=== PATIENT | female | born 1950 | race Caucasian/White ===

== ENCOUNTER 2018-08-01 16:26 | Observation (INO) ==
[2018-08-01 17:28] LABS: Basophils % 0.4 %; Eosinophils # 0.1 K/mcL (0.0-0.6); Eosinophils % 1.3 %; Hematocrit 42.3 % (35.3-44.9); Hemoglobin 13.5 g/dL (11.5-15.4); Immature Granulocytes % 0.2 % (0-4); Lymphocytes % 22.5 %; Mean Corpuscular HGB Conc 31.9 g/dL (31.6-35.5); Mean Corpuscular Volume 87.8 fL (83.0-100.0); Mean Platelet Volume 10.6 fL (9.4-12.4); Monocytes # 0.6 K/mcL (0.0-1.3); Monocytes % 6.8 %; Neutrophils # 6.2 K/mcL (1.6-8.9); Platelet Count 238 K/mcL (140-400); Red Blood Count 4.82 M/mcL (3.82-4.97); Red Cell Distribution Width 12.8 % (11.5-14.5); Segmented Neutrophils % 68.8 %
[2018-08-01] MEDS ORDERED: Isovue-370 500 ML BOTTLE IVP ONE (17:40)
[2018-08-01 17:45] LABS: Bilirubin,Urine Negative (Negative); Blood,Urine Negative (Negative); Clarity,Urine Clear (Clear); Color,Urine Yellow (Yellow); Glucose,Urine (UA) Normal (Normal); Ketones,Urine Negative (Negative); Leukocyte Esterase,Urine Small (Negative); Nitrite,Urine Negative (Negative); PH,Urine 5.5 pH Units (5.0-8.0); Protein,Urine Negative (Neg-Trace); Specific Gravity,Urine 1.015 (1.010-1.025); Urobilinogen,Urine Normal (Normal)
[2018-08-01 17:48] LABS: Bacteria,Urine Few per hpf (None-Few); Hyaline Casts,Urine None Seen per lpf (None-Few); RBC,Urine 0-3 per hpf (0-3); Squamous Epithelial Cell,Urine Many per lpf (None-Few)
[2018-08-01 17:50] LABS: Alanine Aminotransferase 18 Units/L (7-52); Albumin 4.3 g/dL (3.5-5.7); Albumin/Globulin Ratio 1.7 (1.1-2.2); Alkaline Phosphatase 81 Units/L (34-104); Amylase 34 Units/L (29-103); Aspartate Amino Transferase 17 Units/L (13-39); BUN/Creatinine Ratio 26 (6-26); Bilirubin,Direct 0.2 mg/dL (0.0-0.2); Bilirubin,Indirect 0.6 mg/dL (0.0-1.2); Bilirubin,Total 0.8 mg/dL (0.3-1.0); Blood Urea Nitrogen 18 mg/dL (8-23); Calcium 9.7 mg/dL (8.6-10.3); Carbon Dioxide 27 mEq/L (23-29); Chloride 104 mEq/L (98-107); Globulin 2.6 g/dL (2.4-3.5); Glucose 145 mg/dL (70-105); Lipase 10 Units/L (11-82); Osmolality,Calculated 294 (280-300); Potassium 3.9 mEq/L (3.5-5.1); Sodium 140 mEq/L (136-145); Total Protein 6.9 g/dL (6.4-8.9); eGFR For African Americans > 60 (> 60); eGFR For Non-African Americans > 60 (> 60)
--- NOTE | 2018-08-01 17:56 | Emergency Department Note ---
Disposition Clinical Impression: Diverticulitis, Colonic mass Disposition: Admitted As Inpatient Condition: Fair Time of Disposition: 19:54 General Adult HPI - General Chief complaint: ED Abdominal Pain Stated complaint: ABD Pain Time Seen by Provider: 08/01/18 17:05 Source: patient Limitations: no limitations - History of Present Illness HPI Narrative: Ms. Villanueva is a 68-year-old female presented to the ED complaining of right lower quadrant abdominal pain. She reports abdominal pain started 1 week ago. Pain is described as constant and achy. She reports radiation of burning sensation into her groin area. Denies any burning with urination or hematuria. She also denies any changes in her bowel movements. Denies any vaginal discharge or bleeding from her vagina. She denies any recent injuries to the right lower quadrant or recent heavy lifting. She reports concern for the pain due to previous history of cervical cancer with previous hysterectomy 5 years ago and wanted to make sure this pain was not related to malignancy. Denies any recent weight loss but reports weight gain. She denies any nausea, emesis, chest pain, shortness of breath or pain. Pain Scale: 5 - Related Data Home Medications Medication Instructions Recorded Confirmed Aspirin [Lo-Dose Aspirin EC] 81 mg PO DAILY 10/05/17 08/01/18 Cetirizine HCl [Zyrtec] 10 mg PO DAILY PRN 08/01/18 08/01/18 Citalopram Hydrobromide [Celexa] 40 mg PO DAILY 08/01/18 08/01/18 Allergies Allergy/AdvReac Type Severity Reaction Status Date / Time No Known Allergies Allergy Verified 08/01/18 16:28 Constitutional: Denies: fever, chills Eyes: Denies: eye pain, eye discharge ENT ED: Denies: ear pain, congestion, dysphagia Cardiovascular: Denies: chest pain, palpitations, dyspnea on exertion, syncope Respiratory: Denies: cough, dyspnea, wheezes Gastrointestinal: Reports: abdominal pain (Right lower quadrant). Denies: nausea, vomiting Genitourinary: Denies: urgency, dysuria, frequency Musculoskeletal: Denies: back pain Integumentary: Denies: rash, abrasion Neurological: Denies: headache, weakness Psychiatric: Denies: anxiety, depression Endocrine: Denies: fatigue Past Medical History - Past Medical History Medical history: Reports: arthritis, cancer Surgical history: Reports: hysterectomy, orthopedic, other Psychiatric history: Reports: depression SPRING LAYER history: Reports: no SPRING LAYER history - Social History Smoking Status: Never smoker Smokeless Tobacco Status: No Alcohol use: Reports: none Drug use: Reports: none Physical Exam - General Limitations: no limitations General appearance: alert, in no apparent distress - Head Head exam: atraumatic, normocephalic - Eye Eye exam: Present: normal appearance, EOMI. Absent: scleral icterus, conjunctival injection - ENT ENT exam: normal exam, normal oropharynx, mucous membranes moist - Neck Neck exam: Present: normal inspection, full ROM, trachea midline - Chest Chest inspection: Present: normal inspection, symmetric chest wall rise - Respiratory Respiratory exam: Present: normal lung sounds bilaterally. Absent: respiratory distress, wheezes - Cardiovascular Cardiovascular exam: Present: regular rate, normal rhythm, +S1, +S2 - Abdominal Exam Abdominal exam: Present: soft, tenderness (mild tenderness in right lower quadrant). Absent: distention, guarding, rigidity - Extremities Exam Extremities exam: Present: normal inspection, full ROM. Absent: tenderness, pedal edema - Neurological Exam Neurological exam: Present: alert, oriented X3 (Oriented to person place and time) - Psychiatric Psychiatric exam: Present: normal affect, normal mood - Skin Skin exam: Present: warm, dry, intact Course Vital Signs Temperature 98 F 08/01/18 16:29 Pulse Rate 88 08/01/18 16:29 Respiratory Rate 16 08/01/18 16:29 Blood Pressure 141/73 08/01/18 16:29 O2 Sat by Pulse Oximetry 93 08/01/18 16:29 Temperature 98 F 08/01/18 17:33 Pulse Rate 88 08/01/18 17:33 Respiratory Rate 16 08/01/18 17:33 Blood Pressure 141/73 08/01/18 17:33 O2 Sat by Pulse Oximetry 93 08/01/18 17:33 Oxygen Delivery Oxygen Delivery Room Air Medical Decision Making - [facility] Narrative Medical decision making narrative: Ms. Villanueva is a 68-year-old female presenting to the ED complaining of right lower quadrant pain onset 1 week ago. Reports the pain is achy in sensation radiates into her groin with a burning sensation in her groin. Denies any pain like this before. Denies any dysuria or sooner bowel habits. She does report. History of cervical cancer 5 years ago and had hysterectomy. CT of the abdomen and pelvis was conducted which shows suspicion for locally advanced colonic malignancy and diverticulitis. 1 dose of Zosyn given. Updated Ms. Villanueva findings. She is understanding and agreeable to admission. 1929 Updated the admitting hospitalist of the CT finding. 1949 - Lab Data Lab results reviewed: Yes I reviewed the patient's lab results. Result diagrams: 08/01/18 17:15 08/01/18 17:15 Lab Results 08/01/18 08/01/18 08/01/18 Range/Units 17:15 17:15 17:33 WBC 9.0 (4.3-11.1) K/mcL RBC 4.82 (3.82-4.97) M/mcL Hgb 13.5 (11.5-15.4) g/dL Hct 42.3 (35.3-44.9) % MCV 87.8 (83.0-100.0) fL MCH 28.0 (28.0-33.3) pg MCHC 31.9 (31.6-35.5) g/dL RDW 12.8 (11.5-14.5) % Plt Count 238 (140-400) K/mcL MPV 10.6 (9.4-12.4) fL Immature Gran % 0.2 (0-4) % Seg Neutrophils % 68.8 % Lymphocytes % 22.5 % Monocytes % 6.8 % Eosinophils % 1.3 % Basophils % 0.4 % Neutrophils # 6.2 (1.6-8.9) K/mcL Lymphocytes # 2.0 (0.6-4.6) K/mcL Monocytes # 0.6 (0.0-1.3) K/mcL Eosinophils # 0.1 (0.0-0.6) K/mcL Basophils # 0.0 (0.0-0.2) K/mcL Sodium 140 (136-145) mEq/L Potassium 3.9 (3.5-5.1) mEq/L Chloride 104 (98-107) mEq/L Carbon Dioxide 27 (23-29) mEq/L BUN 18 (8-23) mg/dL Creatinine 0.70 (0.60-1.20) mg/dL Est GFR ( Amer) > 60 (> 60) Est GFR (Non-Af Amer) > 60 (> 60) BUN/Creatinine Ratio 26 (6-26) Glucose 145 H (70-105) mg/dL Calculated Osmolality 294 (280-300) Calcium 9.7 (8.6-10.3) mg/dL Total Bilirubin 0.8 (0.3-1.0) mg/dL Direct Bilirubin 0.2 (0.0-0.2) mg/dL Indirect Bilirubin 0.6 (0.0-1.2) mg/dL AST 17 (13-39) Units/L ALT 18 (7-52) Units/L Alkaline Phosphatase 81 (34-104) Units/L Serum Total Protein 6.9 (6.4-8.9) g/dL Albumin 4.3 (3.5-5.7) g/dL Globulin 2.6 (2.4-3.5) g/dL Albumin/Globulin Ratio 1.7 (1.1-2.2) Amylase 34 (29-103) Units/L Lipase 10 L (11-82) Units/L Urine Color Yellow (Yellow) Urine Clarity Clear (Clear) Urine pH 5.5 (5.0-8.0) pH Units Ur Specific [place] 1.015 (1.010-1.025) Urine Protein Negative (Neg-Trace) mg/dL Urine Glucose (UA) Normal (Normal) mg/dL Urine Ketones Negative (Negative) mg/dL Urine Blood Negative (Negative) Urine Nitrite Negative (Negative) Urine Bilirubin Negative (Negative) Urine Urobilinogen Normal (Normal) mg/dL Ur Leukocyte Esterase Small H (Negative) Urine Microscopic RBC 0-3 (0-3) per hpf Urine Microscopic WBC 5-15 H (0-3) per hpf Ur Squamous Epith Cells Many H (None-Few) per lpf Urine Bacteria Few (None-Few) per hpf Hyaline Casts None Seen (None-Few) per lpf Ur Culture Indicated? YES A (NO) - Radiology Data Radiology results reviewed: Yes I reviewed the patient's radiology results. Attestation Statement - Attestation Attestation: I, Simon Barkley, examined this patient and my medical decision-making was reviewed with the [employer]/PA/Advanced Practice Nurse/Resident Physician. I agree with the documented findings, disposition and treatment plan as described except to the extent set forth below. 68-year-old female presents emergency Department with concerns of abdominal pain. Patient pain is in the right lower quadrant and has been progressively worsening. Patient has a history of previous cancer for which she had a hysterectomy. Patient denies vomiting, diarrhea, chest pain, palpitations, shortness of breath. Patient was anxious during the initial exam. Abdomen was tender to palpation of the right lower quadrant. CT shows multiple areas of possible malignancy as well as diverticulitis. Patient was started on antibiotics emergency department was admitted to the hospitalist for further care and evaluation.
[2018-08-01] MEDS ORDERED: Piperacillin/Tazobactam 3.375 GM in Water for inj. (sterile) 20 ML IVP ONE (19:31)
[2018-08-01] MEDS ORDERED: Ondansetron 4 MG/2 ML VIAL IVP PRN (21:05)
[2018-08-01] MEDS ORDERED: Naloxone 0.4 MG/ML INJ IVP PRN (21:05)
[2018-08-01] MEDS ORDERED: Loratadine 10 MG TABLET PO PRN (21:08)
--- NOTE | 2018-08-01 21:12 | Internal Med History&Physical ---
Date of Encounter: 08/01/18 Time of Encounter: 21:10 Internal Medicine - H&P: HPI Chief complaint: Abdominal pain History of present illness: Ms. 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 Pain is described as intermittent, achy, involving the right side of her abdomen extending from the right upper quadrant to the right lower quadrant. Pain seems to be aggravated with deep inspiration. No association with food or bowel movements. She reports radiation of burning sensation into her groin area as well as occasional dysuria. Denies any nausea vomiting or diarrhea. No reports of melena or hematochezia. She also denies any changes in her bowel movements. No reports of weight loss. Denies any vaginal discharge or bleeding from her vagina. She denies any recent injuries to the right lower quadrant or recent heavy lifting. She reports concern for the pain due to previous history of ovarian cancer with previous hysterectomy 5 years ago and wanted to make sure this pain was not related to malignancy. She denies any nausea, emesis, chest pain, shortness of breath or pain. Patient currently follows with Dr. Plummer with oncology. No reports of prior colonoscopy. On arrival patient was afebrile, hemodynamically stable. Laboratory workup was within normal limits. UA showed trace leukocyte esterase. CT scan of the abdomen concerning for metastatic colon cancer as well as diverticulitis. Patient was started on Zosyn and admitted for further evaluation. Patient wishes to be full code at this time. Past Med Surg Social Fam HX - Past Medical History Medical history: arthritis, cancer Additional medical history: tubaligation Psychiatric history: depression - Past Surgical History Surgical History: hysterectomy, orthopedic, other Additional surgical history: rt leg. cancer surgery - Social History Smoking Status: Never smoker Smokeless Tobacco Status: No Alcohol use: none Drug use: none - Family History Father Living Status: Cause of : cancer Hx Family Cardiac Disorders: Yes (stroke) Hx Family Cancer: Yes (colon and prostate) Hx Family Endocrine Disorder: Yes Mother Living Status: Age at : 81 Cause of : old age Hx Family Respiratory Disorders: Yes (asthma) Internal Medicine - H&P: Meds Aspirin [Lo-Dose Aspirin EC] 81 mg PO DAILY 10/05/17 [History] Cetirizine HCl [Zyrtec] 10 mg PO DAILY PRN 08/01/18 [History] Citalopram Hydrobromide [Celexa] 40 mg PO DAILY 08/01/18 [History] Allergy/AdvReac Type Severity Reaction Status Date / Time No Known Allergies Allergy Verified 08/01/18 16:28 All Systems PM: A 10-system review of systems was performed and is negative for pertinent findings except as documented above in the HPI. - Constitutional Constitutional: no chills, no fever(s), no night sweats - EENT Eyes: no change in vision, no discharge, no pain, no photophobia Ears: no ear discharge, no ear pain, no tinnitus Nose, mouth and throat: no dysphagia, no nasal discharge, no neck pain, no sore throat - Cardiovascular Cardiovascular ROS IM: no chest pain, no diaphoresis, no dyspnea, no lightheadedness, no palpitations, no syncope - Respiratory Respiratory: no cough, no dyspnea, no wheezing, no excessive phlegm production - Gastrointestinal Gastrointestinal: no abdominal pain, no diarrhea, no hematemesis, no hematochezia, no melena, no nausea, no vomiting - Genitourinary Genitourinary: no change in urinary stream, no dysuria, no flank pain, no hematuria - Musculoskeletal Musculoskeletal ROS IM: no numbness, no tingling - Integumentary Integumentary IM: no rash, no unusual bruising - Neurological Neurological ROS: no confusion, no convulsions, no focal weakness, no numbness, no tingling, no tremor(s) - Hematologic/Lymphatic Hematologic/Lymphatic: no easy bruising - Constitutional Vitals: Temp Pulse Resp BP Pulse Ox 98.5 F 73 15 132/72 93 08/01/18 20:37 08/01/18 20:37 08/01/18 20:37 08/01/18 20:37 08/01/18 20:37 Exam: General: Alert and oriented 3 Skin:Normal color, no rash, no lesions. HEENT:EOM, pupils equal, round and reactive. Cardiovascular:Normal S1 & S2, no rubs, murmurs or gallops. No JVD. Pulse regular. Lungs:Normal breath sounds, no wheezes or crackles. Abdomen:Soft, non-tender, no rigidity. Extremities:No deformity, no edema or tenderness, no joint swelling or clubbing. Neurological:Normal cognition and motor skills. Pulses:Carotid and radial pulses normal +2. Rest of the physical exam is non contributory Internal Med - H&P Results - Labs CBC & Chem 7: 08/01/18 17:15 08/01/18 17:15 Labs: Short CBC 08/01/18 Range/Units 17:15 WBC 9.0 (4.3-11.1) K/mcL Hgb 13.5 (11.5-15.4) g/dL Hct 42.3 (35.3-44.9) % Plt Count 238 (140-400) K/mcL Neutrophils # 6.2 (1.6-8.9) K/mcL BMP 08/01/18 17:15 Sodium 140 Potassium 3.9 Chloride 104 Carbon Dioxide 27 BUN 18 Creatinine 0.70 Glucose 145 H Calcium 9.7 Liver Function 08/01/18 Range/Units 17:15 Total Bilirubin 0.8 (0.3-1.0) mg/dL Direct Bilirubin 0.2 (0.0-0.2) mg/dL AST 17 (13-39) Units/L ALT 18 (7-52) Units/L Alkaline Phosphatase 81 (34-104) Units/L Albumin 4.3 (3.5-5.7) g/dL Urine 08/01/18 Range/Units 17:33 Urine Color Yellow (Yellow) Urine Clarity Clear (Clear) Urine pH 5.5 (5.0-8.0) pH Units Ur Specific [place] 1.015 (1.010-1.025) Urine Protein Negative (Neg-Trace) mg/dL Urine Glucose (UA) Normal (Normal) mg/dL - Impressions ITS Impressions Abdomen/Pelvis CT 08/01/18 17:40 IMPRESSION: 1. Findings suspicious for locally advanced colon malignancy at the level of the splenic flexure with 4.2 cm exophytic component of this mass. No evidence for bowel obstruction however there appears to be a circumferential colonic component to this mass. 2. Separate from this process, involving the sigmoid colon in the pelvis, findings compatible with acute/subacute diverticulitis are noted. No evidence for gross perforation or abscess formation. Abnormal peritoneal nodularity is also present in this location, suspicious for neoplastic process which may be due to an occult secondary neoplastic process in the sigmoid colon versus peritoneal carcinomatosis from the above described splenic flexure mass. 3. Abnormal nodularity in the tail the pancreas, adjacent to the colonic abnormality. Neoplastic involvement is a consideration. This could be confirmed and further evaluated with contrast-enhanced MRI. 4. Indeterminate small bilateral adrenal nodules. This may be due to metastatic disease until proven otherwise. This could also be further evaluated with MRI. 5. Subcentimeter hypoattenuating liver lesions, too small to characterize. Metastatic disease from colon primary can have this appearance. These could also be further evaluated with contrast-enhanced MRI. 6. Additional chronic findings, as above. D/ / Armen Barbosa / Armen Barbosa Interpreting Provider: Armen Barbosa - Assessment and Plan (1) Colonic mass Current Visit: Yes Status: Acute Assessment and plan: Patient with a past medical history significant for ovarian cancer status post chemotherapy presenting with abdominal pain of one days duration. CT scan of the abdomen showing findings suspicious for locally advanced colon malignancy at the level of the splenic flexure with 4.2 cm exophytic component. No evidence of bowel obstruction however there appears to be a circumferential colonic component to this mass. CAT scan further suggestive of metastatic disease with findings of subcentimeter hypoattenuating liver lesions, abnormal peritoneal nodularity suspicious for neoplastic process, abnormal nodularity in the tail of the pancreas adjacent to the colonic abnormality and indeterminate small bilateral adrenal nodules. Findings not present on CT scanning the abdomen in October 2017. -Consult to oncology and gastroenterology. -Supportive care -We will keep patient NPO in the event she will undergo endoscopy and biopsy. -Pain control -CEA level -Consider MRI of the abdomen with contrast for further evaluation of CT findings. (2) Diverticulitis Current Visit: Yes Status: Acute Assessment and plan: CT scan of the abdomen showing acute/subacute diverticulitis. No evidence of perforation or abscess. Patient does not have evidence of sepsis on vitals. No leukocytosis or fever. -Continue ciprofloxacin/vaginal for now and reassess. (3) Ovarian ca Current Visit: No Status: Chronic Assessment and plan: Hx of Ovarian cancer, pathologically stage IIIA carcinosarcoma, status post debulking surgery on 02/16/2014, underwent exploratory laparotomy, omentectomy, total abdominal hysterectomy-bilateral salpingo-oophorectomy and adjuvant chemotherapy with carbo/taxol. She continues to be in remission from last imaging studies. Patient follows with Dr. Bruce Qualifiers: Laterality: unspecified laterality Qualified Code(s): C56.9 - Malignant neoplasm of unspecified ovary (4) Abdominal pain Current Visit: Yes Status: Acute Assessment and plan: See colonic mass/diverticulitis above. -UA weekly suggestive of UTI with only trace leukocyte esterase. Patient currently on antibiotics. Follow-up urine culture Qualifiers: Abdominal location: right lower quadrant Qualified Code(s): R10.31 - Right lower quadrant pain (5) DVT prophylaxis Current Visit: No Status: Acute Assessment and plan: Subcutaneous heparin - Time Spent With Patient Total time spent is greater than 50% in coordination of care (as documented) at patient's floor/unit and/or counseling patient:
[2018-08-01] MEDS: 0.9 % Sodium Chloride 1,000 ML IVC SCH (21:38)
[2018-08-01] MEDS: *HR* Heparin 5,000 UNIT/ML VIAL SQ SCH (21:39)
[2018-08-01] MEDS: Ketorolac 15 MG/ML VIAL IVP PRN (21:40)
[2018-08-01 21:59] LABS: Carcinoembryonic Antigen 1.1 ng/mL (Less than 5.0)
[2018-08-02] MEDS: *HR* Heparin 5,000 UNIT/ML VIAL SQ SCH ×3 (05:23→20:55)
[2018-08-02 06:58] LABS: Basophils % 0.6 %; Eosinophils # 0.2 K/mcL (0.0-0.6); Eosinophils % 2.9 %; Hematocrit 40.7 % (35.3-44.9); Hemoglobin 13.1 g/dL (11.5-15.4); Immature Granulocytes % 0.3 % (0-4); Lymphocytes # 2.2 K/mcL (0.6-4.6); Lymphocytes % 34.7 %; Mean Corpuscular HGB Conc 32.2 g/dL (31.6-35.5); Mean Corpuscular Hemoglobin 28.3 pg (28.0-33.3); Mean Corpuscular Volume 87.9 fL (83.0-100.0); Mean Platelet Volume 10.6 fL (9.4-12.4); Monocytes # 0.6 K/mcL (0.0-1.3); Monocytes % 8.8 %; Neutrophils # 3.3 K/mcL (1.6-8.9); Platelet Count 219 K/mcL (140-400); Red Blood Count 4.63 M/mcL (3.82-4.97); Red Cell Distribution Width 12.9 % (11.5-14.5); Segmented Neutrophils % 52.7 %; White Blood Count 6.2 K/mcL (4.3-11.1)
[2018-08-02 07:06] LABS: Prothrombin Time 11.9 Seconds (9.4-12.1)
[2018-08-02 07:09] LABS: Activated Partial Thrombo Time 37.2 Seconds (26.0-36.0)
[2018-08-02 07:20] LABS: Alanine Aminotransferase 14 Units/L (7-52); Albumin 3.8 g/dL (3.5-5.7); Albumin/Globulin Ratio 1.6 (1.1-2.2); Alkaline Phosphatase 71 Units/L (34-104); Aspartate Amino Transferase 12 Units/L (13-39); BUN/Creatinine Ratio 29 (6-26); Bilirubin,Total 0.6 mg/dL (0.3-1.0); Blood Urea Nitrogen 23 mg/dL (8-23); Carbon Dioxide 27 mEq/L (23-29); Chloride 105 mEq/L (98-107); Globulin 2.4 g/dL (2.4-3.5); Glucose 111 mg/dL (70-105); Osmolality,Calculated 298 (280-300); Potassium 4.3 mEq/L (3.5-5.1); Sodium 142 mEq/L (136-145); Total Protein 6.2 g/dL (6.4-8.9); eGFR For African Americans > 60 (> 60); eGFR For Non-African Americans > 60 (> 60)
--- NOTE | 2018-08-02 07:55 | Internal Med Progress Note ---
Hospitalist Progress Note - Encounter Date of Encounter: 08/02/18 Time of Encounter: 09:18 - Subjective Interval History: Patient states abdominal pain improved with Toradol. Denies fevers/chills. - Exam Vitals: Temp Pulse Resp BP Pulse Ox 98.3 F 66 16 111/68 93 08/02/18 06:52 08/02/18 06:52 08/02/18 06:52 08/02/18 06:52 08/02/18 06:52 Exam: General: Alert and oriented 3 Skin:Normal color, no rash, no lesions. HEENT:EOM, pupils equal, round and reactive. Cardiovascular:RRR Lungs:CTAB Abdomen:Soft, non-tender, no rigidity. no guarding, normal bowel sounds all quadrants. Extremities:No deformity, no edema or tenderness, no joint swelling or clubbing. Neurological:Normal cognition and motor skills. Pulses:Carotid and radial pulses normal +2. - Assessment and Plan (1) Abdominal pain Current Visit: Yes Status: Acute Assessment and Plan: See colonic mass/diverticulitis Continue Zosyn Advance diet as tolerated (2) Ovarian ca Current Visit: No Status: Chronic Assessment and Plan: Hx of Ovarian cancer, pathologically stage IIIA carcinosarcoma, status post debulking surgery on 02/16/2014, underwent exploratory laparotomy, omentectomy, total abdominal hysterectomy-bilateral salpingo-oophorectomy and adjuvant chemotherapy with carbo/taxol. (3) Diverticulitis Current Visit: Yes Status: Acute Assessment and Plan: See above (4) Colonic mass Current Visit: Yes Status: Acute Assessment and Plan: Patient with a past medical history significant for ovarian cancer status post chemotherapy presenting with abdominal pain of one days duration. CT scan of the abdomen showing findings suspicious for locally advanced colon malignancy at the level of the splenic flexure with 4.2 cm exophytic component. No evidence of bowel obstruction however there appears to be a circumferential colonic component to this mass. CAT scan further suggestive of metastatic disease with findings of subcentimeter hypoattenuating liver lesions, abnormal peritoneal nodularity suspicious for neoplastic process, abnormal nodularity in the tail of the pancreas adjacent to the colonic abnormality and indeterminate small bilateral adrenal nodules. Findings not seen on CT scanning the abdomen in October 2017. -Consult to oncology and gastroenterology. -Supportive care -We will keep patient NPO in the event she will undergo endoscopy and biopsy. -Pain control -CEA level -Consider MRI of the abdomen with contrast for further evaluation of CT findings. (5) DVT prophylaxis Current Visit: No Status: Acute Assessment and Plan: SQ heparin - Time Spent with Patient Total time spent is greater than 50% in coordination of care (as documented) at patient's floor/unit and/or counseling patient: Internal Medicine: Result - Labs CBC & Chem 7: 08/02/18 06:44 08/02/18 06:44 Labs: Short CBC 08/01/18 08/02/18 Range/Units 17:15 06:44 WBC 9.0 6.2 (4.3-11.1) K/mcL Hgb 13.5 13.1 (11.5-15.4) g/dL Hct 42.3 40.7 (35.3-44.9) % Plt Count 238 219 (140-400) K/mcL Neutrophils # 6.2 3.3 (1.6-8.9) K/mcL BMP 08/01/18 08/02/18 17:15 06:44 Sodium 140 142 Potassium 3.9 4.3 Chloride 104 105 Carbon Dioxide 27 27 BUN 18 23 Creatinine 0.70 0.80 Glucose 145 H 111 H Calcium 9.7 9.0 Liver Function 08/01/18 08/02/18 Range/Units 17:15 06:44 Total Bilirubin 0.8 0.6 (0.3-1.0) mg/dL Direct Bilirubin 0.2 (0.0-0.2) mg/dL AST 17 12 L (13-39) Units/L ALT 18 14 (7-52) Units/L Alkaline Phosphatase 81 71 (34-104) Units/L Albumin 4.3 3.8 (3.5-5.7) g/dL Urine 08/01/18 Range/Units 17:33 Urine Color Yellow (Yellow) Urine Clarity Clear (Clear) Urine pH 5.5 (5.0-8.0) pH Units Ur Specific [place] 1.015 (1.010-1.025) Urine Protein Negative (Neg-Trace) mg/dL Urine Glucose (UA) Normal (Normal) mg/dL - ABG Interpretation ABG results: PT/INR, D-dimer PT 11.9 Seconds (9.4-12.1) 08/02/18 06:44 - Impressions Impressions Abdomen/Pelvis CT 06/23/19 17:40 IMPRESSION: 1. Findings suspicious for locally advanced colon malignancy at the level of the splenic flexure with 4.2 cm exophytic component of this mass. No evidence for bowel obstruction however there appears to be a circumferential colonic component to this mass. 2. Separate from this process, involving the sigmoid colon in the pelvis, findings compatible with acute/subacute diverticulitis are noted. No evidence for gross perforation or abscess formation. Abnormal peritoneal nodularity is also present in this location, suspicious for neoplastic process which may be due to an occult secondary neoplastic process in the sigmoid colon versus peritoneal carcinomatosis from the above described splenic flexure mass. 3. Abnormal nodularity in the tail the pancreas, adjacent to the colonic abnormality. Neoplastic involvement is a consideration. This could be confirmed and further evaluated with contrast-enhanced MRI. 4. Indeterminate small bilateral adrenal nodules. This may be due to metastatic disease until proven otherwise. This could also be further evaluated with MRI. 5. Subcentimeter hypoattenuating liver lesions, too small to characterize. Metastatic disease from colon primary can have this appearance. These could also be further evaluated with contrast-enhanced MRI. 6. Additional chronic findings, as above. D/ / Armen Barbosa / Armen Barbosa Interpreting Provider: Armen Barbosa Consult Discharge Plan - Plan Referrals: Rose Eubanks DO [Primary Care Provider] - (1) Abdominal pain Qualifiers: Abdominal location: right lower quadrant Qualified Code(s): R10.31 - Right lower quadrant pain (2) Ovarian ca Qualifiers: Laterality: unspecified laterality Qualified Code(s): C56.9 - Malignant neoplasm of unspecified ovary
[2018-08-02 08:28] LABS: Cancer Antigen 125 87 U/mL (Less than 35)
[2018-08-02] MEDS: Aspirin Enteric Coated 81 MG Tablet PO SCH (10:11)
[2018-08-02] MEDS: Piperacillin/Tazobactam 3.375 GM in 0.9 % Sodium Chloride Mini Bag 100 ML IVPB SCH ×3 (10:11→23:17)
[2018-08-02] MEDS: Ketorolac 15 MG/ML VIAL IVP PRN ×2 (10:23→23:49)
[2018-08-02] MEDS: 0.9 % Sodium Chloride 1,000 ML IVC SCH (10:36)
--- NOTE | 2018-08-02 13:00 | Gastroenterology Consult Note ---
<Damari Johnston - Last Filed: 08/02/18 16:00> Date of Encounter: 08/02/18 Time of Encounter: 10:00 - Assessment and plan (1) Colonic mass Current Visit: Yes Status: Acute Assessment and plan: 68-year-old female who has a history of ovarian cancer status post resection and chemotherapy in 2014. She presents with right-sided l pain,CT shows possible colon metastasis, diverticulitis, adrenal nodules, abnormality in the pancreatic tail. Patient will likely need colonoscopy with biopsies, will discuss with Dr. Alexandre. ADDENDUM: Discussed with Dr Alexandre at 1540 and he states he is going to review the CT then make a decision regarding colonoscopy. Keep pt on clear liquids in the mean time. (2) Ovarian ca Current Visit: No Status: Chronic Qualifiers: Laterality: unspecified laterality Qualified Code(s): C56.9 - Malignant neoplasm of unspecified ovary (3) Diverticulitis Current Visit: Yes Status: Acute - Time Spent With Patient Total time spent is greater than 50% in coordination of care (as documented) at patient's floor/unit and/or counseling patient: GI History of Present Illness - Data of Consult Patient: new to practice Consult date: 08/02/18 Requesting Physician: Neel Lake MD - Consult Narrative Reason for consult: colon mass History of present illness: Ms. Villanueva is a 68 year old female former smoker with a past medical history of stage IIIA ovarian cancer status post debulking surgery 2014, total abdominal hysterectomy-bilateral salpingo-oophorectomy and adjuvant chemotherapy. She presents to the ED with complaints of abdominal pain for the past week. Pain is described as intermittent, achy, involving the right side of her abdomen extending from the right upper quadrant to the right lower quadrant. Pain seems to be aggravated with deep inspiration. No association with food or bowel movements. She reports radiation of burning sensation into her groin area as well as occasional dysuria. Denies any nausea vomiting or diarrhea. No reports of melena or hematochezia. She also denies any changes in her bowel movements. No reports of weight loss. Denies any vaginal discharge or bleeding from her vagina. She denies any recent injuries to the right lower quadrant or recent heavy lifting. She denies any nausea, emesis, chest pain, shortness of breath or pain. Patient currently follows with Dr. Plummer with oncology. On arrival patient was afebrile, hemodynamically stable. Laboratory workup was within normal limits. UA showed trace leukocyte esterase. CT scan of the abdomen concerning for metastatic colon cancer as well as diverticulitis, she al so has liver lesions, abnormality in the tail of the pancreas and adrenal nodules. Patient was started on Zosyn and admitted for further evaluation. Her father has a history of colon cancer. NSAIDs aspirin 81 mg, Anticoagulants: Heparin subcutaneous. Colon: 2015 external hemorrhoids, diverticulosis, 2 mm polpyp rectum, Past Med Surg Social Fam HX - Past Medical History Medical history: arthritis, cancer Additional medical history: tubaligation Psychiatric history: depression - Past Surgical History Surgical History: hysterectomy, orthopedic, other Additional surgical history: rt leg. cancer surgery - Social History Smoking Status: Never smoker Smokeless Tobacco Status: No Alcohol use: none Drug use: none - Family History Father Living Status: Cause of : cancer Hx Family Cardiac Disorders: Yes (stroke) Hx Family Cancer: Yes (colon and prostate) Hx Family Endocrine Disorder: Yes Mother Living Status: Age at : 81 Cause of : old age Hx Family Respiratory Disorders: Yes (asthma) Review of Systems: GI: as per [place] [facility]: denies fever, has some chills EYES: denies yellow discoloration ENT: denies pain with swallowing or difficulty swallowing CARDIO: denies chest pain, palpitations RESP: No Shortness of breath with exertion : denies change in color of urine NEURO: denies any weakness HEME: Denies any bruising MS: denies joint pain, joint swelling or back pain. DERM: denies rash or itching PSYCH: Denies history of anxiety or depression - Constitutional Vitals: Temp Pulse Resp BP Pulse Ox 98.1 F 58 15 108/70 94 08/02/18 11:33 08/02/18 11:33 08/02/18 11:33 08/02/18 11:33 08/02/18 11:33 Exam: CONSTITUTIONAL:alert, no acute distress.HEAD:normocephalic.EYES:no jaundice.NECK:no obvious swelling.HEART:regular rate and rhythm, no mu rmurs.LUNGS:bilateral good air entry.ABDOMEN:non distended, soft, tender right upper and lower quadrants, no masses palpable, no organomegaly.RECTAL EXAM:Deferred.EXTREMITIES:no clubbing, cyanosis or edema.SKIN:no stigmata of chronic liver disease.NEUROLOGIC:no obvious focal defect. Results - Labs CBC & Chem 7: 08/02/18 06:44 08/02/18 06:44 Labs: Last Result 08/02/18 06:44 Calcium 9.0 Entire Visit 08/02/18 08/02/18 08/02/18 06:44 06:44 06:44 Hgb 13.1 Hct 40.7 PT 11.9 Total Bilirubin 0.6 AST 12 L ALT 14 CA 125 Ag Serial Mntr 87 H - ABG ABG results: PT/INR, D-dimer PT 11.9 Seconds (9.4-12.1) 08/02/18 06:44 - Impressions Impressions Abdomen/Pelvis CT 08/01/18 17:40 IMPRESSION: 1. Findings suspicious for locally advanced colon malignancy at the level of the splenic flexure with 4.2 cm exophytic component of this mass. No evidence for bowel obstruction however there appears to be a circumferential colonic component to this mass. 2. Separate from this process, involving the sigmoid colon in the pelvis, findings compatible with acute/subacute diverticulitis are noted. No evidence for gross perforation or abscess formation. Abnormal peritoneal nodularity is also present in this location, suspicious for neoplastic process which may be due to an occult secondary neoplastic process in the sigmoid colon versus peritoneal carcinomatosis from the above described splenic flexure mass. 3. Abnormal nodularity in the tail the pancreas, adjacent to the colonic abnormality. Neoplastic involvement is a consideration. This could be confirmed and further evaluated with contrast-enhanced MRI. 4. Indeterminate small bilateral adrenal nodules. This may be due to metastatic disease until proven otherwise. This could also be further evaluated with MRI. 5. Subcentimeter hypoattenuating liver lesions, too small to characterize. Metastatic disease from colon primary can have this appearance. These could also be further evaluated with contrast-enhanced MRI. 6. Additional chronic findings, as above. D/ / Armen Barbosa / Armen Barbosa Interpreting Provider: Armen Barbosa Consult Discharge Plan - Plan Referrals: Rose Eubanks DO [Primary Care Provider] - <Patel Alexandre - Last Filed: 08/04/18 05:35> Date of Encounter: 08/02/18 - Time Spent With Patient Total time spent is greater than 50% in coordination of care (as documented) at patient's floor/unit and/or counseling patient: GI History of Present Illness - Data of Consult Requesting Physician: Neel Lake MD - Consult Narrative History of present illness: Ms. iVllanueva is a 68 year old female - Constitutional Vitals: Temp Pulse Resp BP Pulse Ox 98.2 F 68 16 135/70 94 08/04/18 03:51 08/04/18 03:51 08/04/18 03:51 08/04/18 03:51 08/04/18 03:51 Results - Labs CBC & Chem 7: 08/02/18 06:44 08/02/18 06:44 - ABG ABG results: PT/INR, D-dimer PT 11.9 Seconds (9.4-12.1) 08/02/18 06:44 - Impressions Impressions Abdomen Biopsy CT 08/03/18 00:00 IMPRESSION: 1. CT guided core needle biopsy left upper quadrant mesenteric mass as discussed above. D/ / Marcel Chacon MD / Marcel Chacon MD Interpreting Provider: Marcel Chacon MD - Attending Attestation Unfortunate 68 year old female with metastatic ovarian cancer. Feel colonoscopy may be low yield from a diagnostic standpoint as these lesions usually are extrinsic and compressing the bowel from the outside. Unless they have eroded through into the lumen (no evidence of bleeding) our biopsies would just be mucosal deep. Would recommend IR directed biopsies. Spoke with IR. They plan to repeat CT with rectal contrast and then attempt biopsy. Await their intervention. I have personally performed a face to face evaluation on this patient. I have reviewed and agree with the care plan. History and Exam by me shows:
--- NOTE | 2018-08-02 17:18 | Oncology Inp Consult Note ---
<Jennifer Haney L - Last Filed: 08/02/18 17:42> Date of Encounter: 08/02/18 Time of Encounter: 12:30 Assessment and Plan (1) Ovarian ca Status: Chronic Assessment and plan: History of ovarian cancer, pathologically stage IIIA carcinosarcoma, status post debulking surgery on 02/16/2014, underwent exploratory laparotomy, omentectomy, total abdominal hysterectomy-bilateral salpingo-oophorectomy at [facility] followed by adjuvant chemotherapy with carbo/taxol. She also has a known BRCA1 gene mutation. CT of the abdomen on admission reveals a 4.2 cm splenic flexure exophytic mass, nodularity concerning for potential peritoneal carcinomatosis, nodularity the pancreatic tail, indeterminate small bilateral adrenal nodules and subcentimeter liver nodules. CA 125 elevated at 87, CEA normal 1.1 Plan: Imaging and biochemical results are concerning for recurrence of Ovarian Cancer, however, other new primary malignancy cannot be excluded Recommend CT of chest with IV contrast for staging 4.2 cm exophytic splenic flexure mass appears to be amendable to CT guided biopsy, NPO after midnight and consult to IR in AM Paged Dr. Alexandre to discuss case and recommendations Further recommendations pending final pathology and staging Patient will need to have PET scan arranged as outpatient for 08/11/18 and follow up with Dr. Ko on 08/13/18 Abdominal pain well controlled with use of toradol Qualifiers: Laterality: unspecified laterality Qualified Code(s): C56.9 - Malignant neoplasm of unspecified ovary - Data of Consult Requesting Physician: Neel Lake MD Primary Care Provider: Rose Eubanks - Consult Narrative Reason for consult: Splenic flexure exophytic mass History of present illness: Ms. Villanueva is a 68 year old female with history of ovarian cancer, pathologically stage IIIA carcinosarcoma, status post debulking surgery on 02/16/2014, underwent exploratory laparotomy, omentectomy, total abdominal hysterectomy- bilateral salpingo-oophorectomy at [facility] followed by adjuvant chemotherapy with carbo/taxol. She also has a known BRCA1 gene mutation. Mastectomy has previously been discussed, however, since she has undergone salpingo- oophorectomy which itself decreases risk by upto 50% or so of developing breast ca, decision was made not to pursue mastectomy. Breast MRI 03/23/2018 was negative for malignancy, BIRADS category 1. She presented to the ER for acute abdominal pain worsening over about 1-2 weeks. Pain is described as crampy and sharp at times. She denies constipation or diarrhea. Denies appetite changes or weight loss but does endorse early satiety. Abdominal pain is under good control with use of toradol injections. CT of the abdomen on admission reveals a 4.2 cm splenic flexure exophytic mass, nodularity concerning for potential peritoneal carcinomatosis, nodularity the pancreatic tail, indeterminate small bilateral adrenal nodules and subcentimeter liver nodules. Past Med Surg Social Fam HX - Past Medical History Medical history: arthritis, cancer Additional medical history: tubaligation Psychiatric history: depression - Past Surgical History Surgical History: hysterectomy, orthopedic, other Additional surgical history: rt leg. cancer surgery - Social History Smoking Status: Never smoker Smokeless Tobacco Status: No Alcohol use: none Drug use: none - Family History Father Living Status: Cause of : cancer Hx Family Cardiac Disorders: Yes (stroke) Hx Family Cancer: Yes (colon and prostate) Hx Family Endocrine Disorder: Yes Mother Living Status: Age at : 81 Cause of : old age Hx Family Respiratory Disorders: Yes (asthma) Medications and Allergies Aspirin [Adult Aspirin Regimen] 81 mg PO DAILY 08/02/18 [History] Cetirizine HCl [24Hour Allergy] 10 mg PO DAILY PRN 08/02/18 [History] Citalopram [CeleXA] 20 mg PO DAILY 08/02/18 [History] Allergy/AdvReac Type Severity Reaction Status Date / Time No Known Allergies Allergy Verified 08/02/18 08:59 Constitutional: Absent: anorexia, fatigue, fever(s), headache(s), night sweats, weight loss Eyes: Absent: blurry vision Nose, mouth and throat: Absent: dysphagia, odynophagia Cardiovascular: Absent: chest pain, palpitations Respiratory: Present: cough, dyspnea (on exertion at baseline) Gastrointestinal: Present: abdominal pain, cramping, early satiety. Absent: dysphagia, hematochezia, melena, nausea, odynophagia, vomiting Genitourinary: Absent: dysuria, hematuria Musculoskeletal: Absent: muscle weakness Integumentary: Absent: rash, wounds Neurological: Absent: confusion, dizziness, focal weakness Psychiatric: Present: as per HPI Endocrine: Present: as per HPI Hematologic/Lymphatic: Present: as per HPI. Absent: lymphadenopathy Oncology - Exam - Constitutional General appearance: cooperative, no acute distress, no febrile - Head Head exam: Present: atraumatic - ENT ENT exam: Present: mucous membranes moist, normal oropharynx - Respiratory Respiratory exam: Present: CTAB. Absent: respiratory distress - Cardiovascular Cardiovascular exam: Present: RRR - GI/Abdominal GI/Abdominal exam: Present: normal bowel sounds, soft. Absent: tenderness Additional comments: mildly distended - Extremities Exam Extremities exam: Present: normal inspection. Absent: calf tenderness - Neurological Exam Neurological exam: Present: alert, oriented X3, no focal deficits, strengths equal and symetr throughout - Psychiatric Psychiatric exam: Present: normal affect, normal mood - Skin Skin exam: Present: dry, intact, normal color, warm Consult Discharge Plan - Plan Referrals: Rose Eubanks DO [Primary Care Provider] - Inpatient Charges Provider: Dr. Teo Richmond <Quincy Richmond - Last Filed: 08/02/18 20:54> Date of Encounter: 08/02/18 - Data of Consult Requesting Physician: Neel Lake MD Primary Care Provider: Rose Eubanks - Attending Attestation I have seen and examined Ms. Villanueva and review assessment and plan: Place pulmonary practitioner. Ms. Villanueva is a pleasant 68 year old woman with history of Stage III ovarian carcinosarcoma. She presented with abdominal cramping and discomfort for the past 2 weeks. Pain is mostly located in the right upper quadrant. No nausea or vomiting. No unexplained weight loss. Bowel habits are normal. She denies melena or hematochezia. CA 125 was starting to increase at her last visit. Repeat this morning has returned elevated at 87. On exam, she is in good spirits. Abdomen soft with minimal tenderness without rebound or guarding. No hepatosplenomegaly. Extremities warm dry without edema. Personal review of her CT imaging reveals an exophytic mass which appears extracolonic at the splenic flexure. There is nodularity about the sigmoid colon and tail of the pancreas c/w peritoneal spread of disease. Requested attempt at CT-guided biopsy of the splenic flexure mass. She has been made nothing by mouth after midnight. Do not feel colonoscopy would be helpful at this time. We did discuss that chemotherapy likely her next step in her care area and certainly surgical expiration can be reconsidered as well. Further decisions pending biopsy and restaging scans. CT of the chest has been obtained by my review reveals no evidence of metastatic disease. Inpatient Charges Provider: Dr. Teo Richmond Consult - Inpatient Medicare Only: [id number]
[2018-08-02] MEDS ORDERED: Isovue-370 500 ML BOTTLE IVP ONE (17:41)
[2018-08-03] MEDS: *HR* Heparin 5,000 UNIT/ML VIAL SQ SCH ×3 (05:33→21:58)
[2018-08-03] MEDS ORDERED: Aspirin Enteric Coated 81 MG Tablet PO SCH (09:00)
[2018-08-03] MEDS: Aspirin Enteric Coated 81 MG Tablet PO SCH (09:31)
[2018-08-03] MEDS: Piperacillin/Tazobactam 3.375 GM in 0.9 % Sodium Chloride Mini Bag 100 ML IVPB SCH (10:02)
--- NOTE | 2018-08-03 11:26 | Oncology Inp Progress Note ---
Date of Encounter: 08/03/18 Time of Encounter: 11:45 (1) Colonic mass Current Visit: Yes Status: Acute Assessment and plan: History of Stage III ovarian carcinosarcoma. CA 125 elevated consistent with probable intraabdominal recurrence. CT imaging reveals an exophytic mass which appears extracolonic at the splenic flexure. There is nodularity about the sigmoid colon and tail of the pancreas c/w peritoneal spread of disease. CT-guided biopsy of the splenic flexure mass today. Further decisions pending biopsy and restaging scans. Clinically, I do not think she has diverticulitis. She has not expressed fever nor left lower quadrant pain. I think CT imaging findings are related to her malignancy and not infection. In my opinion, it would be reasonable to transition to an oral antibiotic or discontinue antibiotic altogether. I would recommend initiation of discharge planning. Oncology: Subj Interval history: Doing okay this morning. She is currently sleeping with all the blinds drawn during lunch hour. Abdominal pain has improved. She denies ever having left lower quadrant abdominal pain or fever. She is not moved her bowels since Thursday. No headache, blurred or double vision. Epigastric her upper quadrant pain are present but controlled. No other new aches or pains. CT-guided biopsy has been arranged for today after discussion with interventional radiology. - Constitutional General appearance: cooperative, no acute distress, obese - Head Head exam: Present: atraumatic, normal inspection, normocephalic - Eye Eye exam: Present: normal appearance, conjuntiva pink, sclera anicteric - ENT ENT exam: Present: mucous membranes moist, normal oropharynx - Neck Neck exam: Present: lymphadenopathy, normal inspection - Respiratory Respiratory exam: Present: CTAB - Cardiovascular Cardiovascular exam: Present: RRR - GI/Abdominal GI/Abdominal exam: Present: normal bowel sounds, soft, tenderness - Extremities Exam Extremities exam: Present: normal inspection - Neurological Exam Neurological exam: Present: alert, CN II-XII intact, no focal deficits Oncology: Obj Data - Labs CBC & Chem 7: 08/02/18 06:44 08/02/18 06:44 - Imaging and cardiology CT scan - chest Status: image reviewed by me Additional comments: CT OF THE CHEST WITH CONTRAST 08/02/2018 3:40 pm FINDINGS: Mediastinum: No mediastinal lymphadenopathy is identified. The thoracic aorta is normal in caliber, without evidence of dissection. There is an aberrant right subclavian artery. Heterogeneous cystic and solid lesion within the right thyroid lobe appears increased in size, now measuring 2.5 x 1.5 cm (previously 2.1 cm maximally). Lungs/pleura: Small 2-3 mm nodule is unchanged within the left lower lobe, unchanged since 2015 and considered benign. No suspicious lung lesions are identified. No focal infiltrate. No pneumothorax. Upper Abdomen: Cyst within the right kidney noted, measuring at least 7.0 cm, incompletely visualized. Images the upper abdomen are otherwise unremarkable. Soft Tissues/Bones: No osteolytic or osteoblastic bone lesions are identified. Extra thoracic soft tissues are otherwise unremarkable. Chronic left rib fractures are found. CT/CT chest w con IMPRESSION: No acute abnormality detected in the chest. Heterogeneous cystic and solid lesion within the right thyroid lobe which appears increased in size when compared to previous exams. Given the interval change, further evaluation with thyroid ultrasound is recommended. Aberrant right subclavian artery. This is generally an incidental finding, but can be clinically significant should the patient ever undergo neck surgery (for example, thyroid resection), as the recurrent laryngeal nerve is no longer recurrent, and therefore easily injured. Should this patient ever undergo neck surgery in the future, alerting the surgeon to this anatomic variant may prevent vocal cord paralysis. Consult Discharge Plan - Plan Referrals: Rose Eubanks DO [Primary Care Provider] - Inpatient Charges Provider: Dr. Teo Richmond Follow up - Inpatient: [id number]
--- NOTE | 2018-08-03 13:45 | IR Procedure Note ---
Date of procedure: 08/03/18 Consent Obtained: Written consent Timeout: Correct patient and procedure verified, Time out performed, Skin prep completed Local anesthetic: Lidocaine 1% Was there an admin assistant present: No Estimated blood loss (cc): 0 Complications: None; Tolerated procedure well Indications: LUQ mass Procedure Performed: CT guided biopsy Post Procedure Treatment Plan: crystal on floor Specimen: to path
--- NOTE | 2018-08-03 15:12 | Internal Med Progress Note ---
Hospitalist Progress Note - Encounter Date of Encounter: 08/03/18 Time of Encounter: 15:10 - Subjective Interval History: Abdominal pain improved, denies fevers/chills, n/v, no pain with bm. Appetite good, would like to eat. - Exam Vitals: Temp Pulse Resp BP Pulse Ox 98.0 F 68 16 144/86 96 08/03/18 14:22 08/03/18 14:22 08/03/18 14:22 08/03/18 14:22 08/03/18 14:22 Exam: General: Alert and oriented 3 Skin:Normal color, no rash, no lesions. HEENT:EOM, pupils equal, round and reactive. Cardiovascular:RRR Lungs:CTAB Abdomen:Soft, non-tender, no rigidity. no guarding, normal bowel sounds all quadrants. Extremities:No deformity, no edema or tenderness, no joint swelling or clubbing. Neurological:Normal cognition and motor skills. Pulses:Carotid and radial pulses normal +2. - Assessment and Plan (1) Abdominal pain Current Visit: Yes Status: Acute Assessment and Plan: See colonic mass/diverticulitis De escalate abx today. Advance diet as tolerated (2) Ovarian ca Current Visit: No Status: Chronic Assessment and Plan: Hx of Ovarian cancer, pathologically stage IIIA carcinosarcoma, status post debulking surgery on 02/16/2014, underwent exploratory laparotomy, omentectomy, total abdominal hysterectomy-bilateral salpingo-oophorectomy and adjuvant chemotherapy with carbo/taxol. (3) Diverticulitis Current Visit: Yes Status: Acute Assessment and Plan: See above (4) Colonic mass Current Visit: Yes Status: Acute Assessment and Plan: Patient with a past medical history significant for ovarian cancer status post chemotherapy presenting with abdominal pain of one days duration. CT scan of the abdomen showing findings suspicious for locally advanced colon malignancy at the level of the splenic flexure with 4.2 cm exophytic component. No evidence of bowel obstruction however there appears to be a circumferential colonic component to this mass. CAT scan further suggestive of metastatic disease with findings of subcentimeter hypoattenuating liver lesions, abnormal peritoneal nodularity suspicious for neoplastic process, abnormal nodularity in the tail of the pancreas adjacent to the colonic abnormality and indeterminate small bilateral adrenal nodules. Findings not seen on CT scanning the abdomen in October 2017. -Consult to oncology and gastroenterology. -Supportive care -We will keep patient NPO in the event she will undergo endoscopy and biopsy. Plan for today (5) DVT prophylaxis Current Visit: No Status: Acute Assessment and Plan: SQ heparin - Time Spent with Patient Total time spent is greater than 50% in coordination of care (as documented) at patient's floor/unit and/or counseling patient: Internal Medicine: Result - Labs CBC & Chem 7: 08/02/18 06:44 08/02/18 06:44 - ABG Interpretation ABG results: PT/INR, D-dimer PT 11.9 Seconds (9.4-12.1) 08/02/18 06:44 - Impressions Impressions Chest CT 08/02/18 17:41 IMPRESSION: No acute abnormality detected in the chest. Heterogeneous cystic and solid lesion within the right thyroid lobe which appears increased in size when compared to previous exams. Given the interval change, further evaluation with thyroid ultrasound is recommended. Aberrant right subclavian artery. This is generally an incidental finding, but can be clinically significant should the patient ever undergo neck surgery (for example, thyroid resection), as the recurrent laryngeal nerve is no longer recurrent, and therefore easily injured. Should this patient ever undergo neck surgery in the future, alerting the surgeon to this anatomic variant may prevent vocal cord paralysis. D/ / Shaji Lobo MD / Shaji Lobo MD Interpreting Provider: Shaji Lobo MD Consult Discharge Plan - Plan Referrals: Rose Eubanks DO [Primary Care Provider] - (1) Abdominal pain Qualifiers: Abdominal location: right lower quadrant Qualified Code(s): R10.31 - Right lower quadrant pain (2) Ovarian ca Qualifiers: Laterality: unspecified laterality Qualified Code(s): C56.9 - Malignant neoplasm of unspecified ovary
[2018-08-03] MEDS ORDERED: metroNIDAZOLE 500 MG TABLET PO SCH (17:00)
[2018-08-03] MEDS: Ketorolac 15 MG/ML VIAL IVP PRN (19:46)
[2018-08-04] MEDS: Ketorolac 15 MG/ML VIAL IVP PRN (01:45)
[2018-08-04] MEDS: *HR* Heparin 5,000 UNIT/ML VIAL SQ SCH (05:53)
[2018-08-04 06:53] VITALS: BP 137/77
--- NOTE | 2018-08-04 09:00 | Discharge Summary ---
- NOTES TO OUTPATIENT PROVIDER Notes to Outpatient Provider: Follow up LUQ mass biopsy report. Reasonably follow-up with hematology oncology. We will need follow-up to monitor for signs of diverticulitis in 1-2 weeks. Patient will need outpatient thyroid ultrasound to evaluate right thyroid lobe lesion. 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 Orders not resulted at time of discharge: Pending orders 08/02/18 17:39 Surgical Pathology [PTH] Routine Date of Encounter: 08/04/18 Time of Encounter: 08:57 - Discharge Diagnosis (1) Ovarian ca Priority: Secondary Status: Chronic Qualifiers: Laterality: unspecified laterality Qualified Code(s): C56.9 - Malignant neoplasm of unspecified ovary (2) DVT prophylaxis Priority: Secondary Status: Acute (3) Colonic mass Priority: Primary Status: Acute (4) Abdominal pain Priority: Primary Status: Acute Qualifiers: Abdominal location: right lower quadrant Qualified Code(s): R10.31 - Right lower quadrant pain Hospital course: Ms. Villanueva is a 68 year old female with past medical history of stage III ovarian cancer status post surgery in 2015 came in with complain of abdominal pain right upper quadrant. Patient had CT abdomen and pelvis which showed exophytic mass and splenic flexure, possible diverticulitis and sigmoid colon, nodularity and 10 of pancreas, intermediate bilateral adrenal nodules and liver lesions suspicion of metastasis. Oncology and gastroenterology evaluation was obtained. Patient was continued on empiric antibiotics for possible diverticulitis. Patient underwent CT-guided biopsy of left upper quadrant mass. Patient did not have any left lower quadrant pain or fevers. Patient antibiotic were stopped given less likelihood of clinically significant diverticulitis and likely changes related to her malignancies. Antibiotics were stopped. Patient is otherwise stable and without any abdominal pain. She is ready to be discharged home pending biopsy results. Patient will need to follow up with oncology and PCP within 1-2 weeks. Discharge discussed with: patient, nurse - Time Spent with Patient Total time spent providing and/or coordinating discharge services: Time spent: Greater than 30 minutes (35) - Discharge Medications Prescriptions: New Acetaminophen [Tylenol] 325 mg PO Q6HR PRN #15 tablet PRN Reason: Pain Continued Aspirin [Adult Aspirin Regimen] 81 mg PO DAILY Cetirizine HCl [24Hour Allergy] 10 mg PO DAILY PRN PRN Reason: Allergy Symptoms Citalopram [CeleXA] 20 mg PO DAILY Home Medications: Aspirin [Adult Aspirin Regimen] 81 mg PO DAILY 08/02/18 [History] Cetirizine HCl [24Hour Allergy] 10 mg PO DAILY PRN 08/02/18 [History] Citalopram [CeleXA] 20 mg PO DAILY 08/02/18 [History] Acetaminophen [Tylenol] 325 mg PO Q6HR PRN #15 tablet 08/04/18 [Rx] Allergies/Adverse Reactions: Allergy/AdvReac Type Severity Reaction Status Date / Time No Known Allergies Allergy Verified 08/02/18 08:59 Date of admission: 08/01/18 19:58 Primary care physician: Rose Eubanks Consults: 08/01/18 21:09 Consult to Gastroenterology [CONS] Routine Consulting Provider: Gastroenterology [facility]lin Reason for Consult: Metastatic disease concerning for colon cancer Call Completed: No Consult to Oncology [CONS] Routine Consulting Provider: On[facility] Reason for Consult: Concern for metastatic disease suspicious for colon cancer Call Completed: No 08/02/18 17:39 Consult to Interventional Radiology [CONS] Routine Consulting Provider: Radiology Interventional Cols Reason for Consult: CT guided core needle biopsy 4.2 cm exophytic mass splenic flexure Call Completed: No Discharging clinician: Leonor Nolen Esparza - Constitutional Vitals: Temp Pulse Resp BP Pulse Ox 98.2 F 67 15 137/77 93 08/04/18 06:52 08/04/18 06:52 08/04/18 06:52 08/04/18 06:52 08/04/18 06:52 Exam: General: In no acute distress. obese Respiratory exam: CTAB. no accessory muscle use, rales, rhonchi, wheezes Cardiovascular exam: RRR, +S1, +S2. no murmur, gallop, rubs. GI/Abdominal exam: Non-tender, Non-distended, normal bowel sounds, soft, no peritoneal signs. Extremities exam: no pedal edema, pulses palpable in b/l lower extremities. no calf tenderness Neurological exam: CN II-XII intact, AO X3, no focal deficits. Skin exam: No skin rash - Patient Status Disposition: Home, Self-Care Condition: Fair - Ambulatory Orders Ambulatory Orders: PET CT skull to thigh DX/initi [PE] Time Frame: 08/11/18, Facility: [facility], Location: Radiology - Discharge Instructions Follow Up With: Rose Eubanks DO [Primary Care Provider] - Cris Plummer MD [Partnered Physician] - - Diet and Activity Activity: increase activity as tolerated
[2018-08-04] MEDS: Aspirin Enteric Coated 81 MG Tablet PO SCH (09:49)
== END 2018-08-04 11:08 | disposition home or self-care (01) ==
LOC: 3ANU 16:26 → EMEROOARM 16:26 → SUATTDRO 19:58 → 3ANU 20:24
PROVIDERS: ADMIT Internal Medicine; ATTEND Internal Medicine

== ENCOUNTER 2021-11-11 14:32 | Inpatient (IN) ==
[2021-11-11] MEDS ORDERED: Iopamidol - 370 500 ML MLS IVP ONE (15:19)
[2021-11-11 15:40] LABS: Basophils % 0.4 %; Eosinophils # 0.3 K/mcL (0.0-0.6); Eosinophils % 2.7 %; Hematocrit 39.5 % (35.3-44.9); Immature Granulocytes % 0.5 % (0-4); Lymphocytes # 2.3 K/mcL (0.6-4.6); Lymphocytes % 21.9 %; Mean Corpuscular HGB Conc 32.9 g/dL (31.6-35.5); Mean Corpuscular Hemoglobin 31.4 pg (28.0-33.3); Mean Corpuscular Volume 95.4 fL (83.0-100.0); Mean Platelet Volume 10.3 fL (9.4-12.4); Monocytes # 0.9 K/mcL (0.0-1.3); Monocytes % 8.5 %; Platelet Count 186 K/mcL (140-400); Red Blood Count 4.14 M/mcL (3.82-4.97); Red Cell Distribution Width 13.2 % (11.5-14.5); White Blood Count 10.6 K/mcL (4.3-11.1)
[2021-11-11 15:58] LABS: Albumin/Globulin Ratio 1.2 (1.1-2.2); Bilirubin,Direct 0.3 mg/dL (0.0-0.2); Bilirubin,Indirect 0.9 mg/dL (0.0-1.0); Bilirubin,Total 1.2 mg/dL (0.3-1.0); Calcium 10.2 mg/dL (8.6-10.3); Globulin 3.4 g/dL (2.4-3.5); Potassium 4.4 mEq/L (3.5-5.1); Total Protein 7.4 g/dL (6.4-8.9)
[2021-11-11] MEDS ORDERED: *HR* Heparin 5,000 UNIT/ML VIAL IVP ONE (19:07)
[2021-11-11] MEDS ORDERED: *HR* Heparin 5,000 UNIT/ML VIAL IVP PRN ×2 (19:07)
[2021-11-11] MEDS ORDERED: Melatonin 3 MG TABLET PO PRN (19:27)
[2021-11-11] MEDS ORDERED: Naloxone 0.4 MG/ML INJ IVP PRN (19:27)
[2021-11-11] MEDS ORDERED: D5% in Water 1,000 ML IVC PRN (19:53)
[2021-11-11] MEDS ORDERED: Dextrose Gel 15 GM/37.5 ML TUBE PO PRN ×2 (19:53)
[2021-11-11] MEDS ORDERED: *HR* Dextrose 50 % in Water (Syg) 50 ML SYRINGE IVP PRN (19:53)
[2021-11-11 19:54] LABS: Heparin anti-factor XA UFH < 0.04 IU/mL (0.30-0.70); INR 1.1; Prothrombin Time 12.8 Seconds (9.4-12.1)
[2021-11-11] MEDS: Heparin 25,000UNIT/250ML 1/2NS 25,000 UNIT/250 ML IV.SOLN IVC SCH (20:12)
[2021-11-11] MEDS: Acetaminophen 325 MG TABLET PO PRN (23:57)
[2021-11-12 02:57] LABS: Hematocrit 36.5 % (35.3-44.9); Hemoglobin 12.2 g/dL (11.5-15.4); Mean Corpuscular HGB Conc 33.4 g/dL (31.6-35.5); Mean Corpuscular Hemoglobin 31.9 pg (28.0-33.3); Mean Corpuscular Volume 95.5 fL (83.0-100.0); Mean Platelet Volume 10.3 fL (9.4-12.4); Platelet Count 165 K/mcL (140-400); Red Blood Count 3.82 M/mcL (3.82-4.97); Red Cell Distribution Width 13.4 % (11.5-14.5); White Blood Count 9.5 K/mcL (4.3-11.1)
[2021-11-12 03:18] LABS: Calcium 9.5 mg/dL (8.6-10.3); Magnesium 1.8 mg/dL (1.6-2.6)
[2021-11-12] MEDS: RUCAPARIB CAMSYLATE 300 MG PO SCH ×3 (03:38→20:52)
[2021-11-12] MEDS: Acetaminophen 325 MG TABLET PO PRN ×2 (08:27→21:41)
[2021-11-12] MEDS: Aspirin 81 MG TAB.CHEW PO SCH (08:27)
[2021-11-12] MEDS ORDERED: Iopamidol - 370 500 ML MLS IVP ONE (11:23)
[2021-11-12] MEDS: Heparin 25,000UNIT/250ML 1/2NS 25,000 UNIT/250 ML IV.SOLN IVC SCH (16:24)
[2021-11-12] MEDS: Ondansetron ODT 4 MG TAB.RAPDIS SL PRN (19:41)
[2021-11-12] MEDS ORDERED: Prochlorperazine 10 MG/2 ML VIAL IVP ONE (21:44)
[2021-11-13] MEDS: Acetaminophen 325 MG TABLET PO PRN ×2 (03:38→11:39)
[2021-11-13 04:07] LABS: Basophils % 0.5 %; Eosinophils # 0.2 K/mcL (0.0-0.6); Eosinophils % 2.3 %; Hematocrit 35.8 % (35.3-44.9); Immature Granulocytes % 0.4 % (0-4); Lymphocytes # 1.9 K/mcL (0.6-4.6); Lymphocytes % 24.3 %; Mean Corpuscular HGB Conc 33.5 g/dL (31.6-35.5); Mean Corpuscular Hemoglobin 31.4 pg (28.0-33.3); Mean Corpuscular Volume 93.7 fL (83.0-100.0); Monocytes # 0.7 K/mcL (0.0-1.3); Neutrophils # 5.1 K/mcL (1.6-8.9); Platelet Count 155 K/mcL (140-400); Red Blood Count 3.82 M/mcL (3.82-4.97); Red Cell Distribution Width 13.2 % (11.5-14.5); Segmented Neutrophils % 63.5 %
[2021-11-13 04:16] LABS: INR 1.1; Prothrombin Time 12.4 Seconds (9.4-12.1)
[2021-11-13 04:26] LABS: Albumin 3.6 g/dL (3.5-5.7); Albumin/Globulin Ratio 1.2 (1.1-2.2); Bilirubin,Total 0.8 mg/dL (0.3-1.0); Calcium 9.2 mg/dL (8.6-10.3); Total Protein 6.6 g/dL (6.4-8.9)
[2021-11-13] MEDS ORDERED: 0.9 % Sodium Chloride 500 ML ONE ×2 (07:20→08:56)
[2021-11-13] MEDS ORDERED: Lidocaine/EPI 1:100k 1% 50 ML VIAL ONE (07:21)
[2021-11-13] MEDS: Aspirin 81 MG TAB.CHEW PO SCH (07:40)
[2021-11-13] MEDS: RUCAPARIB CAMSYLATE 300 MG PO SCH (07:40)
[2021-11-13] MEDS ORDERED: *HR* FentaNYL (PF) 100 MCG/2 ML VIAL IVP ONE (08:48)
[2021-11-13] MEDS ORDERED: *HR* Midazolam HCl 2 MG/2 ML VIAL IVP ONE (08:48)
[2021-11-13] MEDS: ceFAZolin 1,000 MG in 0.9 % Sodium Chloride Mini Bag 100 ML IVPB SCH ×2 (09:12→09:27)
[2021-11-13] MEDS ORDERED: *HR* Heparin 5,000 UNIT/ML VIAL IVP PRN ×2 (17:31)
[2021-11-13] MEDS ORDERED: Heparin 25,000UNIT/250ML 1/2NS 25,000 UNIT/250 ML IV.SOLN IVC SCH (17:45)
[2021-11-13] MEDS ORDERED: Apixaban 5 MG TABLET PO SCH (21:00)
[2021-11-14] MEDS: Acetaminophen 325 MG TABLET PO PRN ×4 (00:07→20:36)
[2021-11-14 03:12] LABS: Basophils % 0.3 %; Eosinophils # 0.2 K/mcL (0.0-0.6); Eosinophils % 2.3 %; Hematocrit 33.9 % (35.3-44.9); Immature Granulocytes % 0.5 % (0-4); Lymphocytes # 1.9 K/mcL (0.6-4.6); Lymphocytes % 21.4 %; Mean Corpuscular HGB Conc 32.4 g/dL (31.6-35.5); Mean Corpuscular Hemoglobin 30.9 pg (28.0-33.3); Mean Corpuscular Volume 95.2 fL (83.0-100.0); Mean Platelet Volume 10.2 fL (9.4-12.4); Monocytes # 0.9 K/mcL (0.0-1.3); Monocytes % 10.6 %; Neutrophils # 5.7 K/mcL (1.6-8.9); Platelet Count 162 K/mcL (140-400); Red Blood Count 3.56 M/mcL (3.82-4.97); Red Cell Distribution Width 13.5 % (11.5-14.5); Segmented Neutrophils % 64.9 %; White Blood Count 8.7 K/mcL (4.3-11.1)
[2021-11-14 03:14] LABS: Calcium 9.1 mg/dL (8.6-10.3); Potassium 3.7 mEq/L (3.5-5.1)
[2021-11-14] MEDS: Aspirin 81 MG TAB.CHEW PO SCH (08:06)
[2021-11-15] MEDS: Ondansetron ODT 4 MG TAB.RAPDIS SL PRN ×3 (00:49→21:06)
[2021-11-15] MEDS: Acetaminophen 325 MG TABLET PO PRN ×3 (05:19→20:56)
[2021-11-15 05:20] LABS: Basophils % 0.4 %; Eosinophils # 0.3 K/mcL (0.0-0.6); Eosinophils % 2.8 %; Hematocrit 37.2 % (35.3-44.9); Hemoglobin 12.2 g/dL (11.5-15.4); Immature Granulocytes % 0.4 % (0-4); Lymphocytes # 1.7 K/mcL (0.6-4.6); Lymphocytes % 19.1 %; Mean Corpuscular HGB Conc 32.8 g/dL (31.6-35.5); Mean Corpuscular Hemoglobin 31.3 pg (28.0-33.3); Mean Corpuscular Volume 95.4 fL (83.0-100.0); Monocytes # 0.7 K/mcL (0.0-1.3); Neutrophils # 6.3 K/mcL (1.6-8.9); Platelet Count 208 K/mcL (140-400); Red Cell Distribution Width 13.6 % (11.5-14.5); Segmented Neutrophils % 69.3 %; White Blood Count 9.1 K/mcL (4.3-11.1)
[2021-11-15] MEDS ORDERED: *HR* Heparin 5,000 UNIT/ML VIAL IVP ONE (08:34)
[2021-11-15] MEDS ORDERED: *HR* Heparin 5,000 UNIT/ML VIAL IVP PRN ×2 (08:34)
[2021-11-15] MEDS: Aspirin 81 MG TAB.CHEW PO SCH (09:09)
[2021-11-15] MEDS: Heparin 25,000UNIT/250ML 1/2NS 25,000 UNIT/250 ML IV.SOLN IVC SCH (09:11)
[2021-11-15 09:51] LABS: Hemoglobin 11.9 g/dL (11.5-15.4); Mean Corpuscular HGB Conc 33.1 g/dL (31.6-35.5); Mean Corpuscular Hemoglobin 31.5 pg (28.0-33.3); Mean Corpuscular Volume 95.2 fL (83.0-100.0); Platelet Count 165 K/mcL (140-400); Red Blood Count 3.78 M/mcL (3.82-4.97); Red Cell Distribution Width 13.7 % (11.5-14.5); White Blood Count 8.8 K/mcL (4.3-11.1)
[2021-11-15 09:59] LABS: Heparin anti-factor XA UFH < 0.04 IU/mL (0.30-0.70)
[2021-11-15 10:00] LABS: INR 1.1; Prothrombin Time 12.1 Seconds (9.4-12.1)
[2021-11-15] MEDS ORDERED: Metoclopramide 10 MG/2 ML VIAL IVP ONE (14:16)
[2021-11-15 16:08] LABS: Hematocrit 36.3 % (35.3-44.9); Hemoglobin 11.8 g/dL (11.5-15.4)
[2021-11-15 21:25] LABS: Hematocrit 36.7 % (35.3-44.9); Hemoglobin 12.3 g/dL (11.5-15.4)
[2021-11-16] MEDS: Acetaminophen 325 MG TABLET PO PRN ×2 (02:56→09:12)
[2021-11-16] MEDS: Heparin 25,000UNIT/250ML 1/2NS 25,000 UNIT/250 ML IV.SOLN IVC SCH (05:17)
[2021-11-16 08:19] LABS: Hematocrit 38.2 % (35.3-44.9); Hemoglobin 12.9 g/dL (11.5-15.4)
[2021-11-16] MEDS: Aspirin 81 MG TAB.CHEW PO SCH (09:08)
[2021-11-16] MEDS: *HR* HYDROcodone/Acet 5/325 mg TABLET PO PRN ×2 (12:06→19:31)
[2021-11-16 14:10] LABS: Hematocrit 37.3 % (35.3-44.9); Hemoglobin 12.1 g/dL (11.5-15.4)
[2021-11-16 21:20] LABS: Hematocrit 34.5 % (35.3-44.9); Hemoglobin 11.3 g/dL (11.5-15.4)
[2021-11-17] MEDS: Acetaminophen 325 MG TABLET PO PRN (00:33)
[2021-11-17] MEDS: Heparin 25,000UNIT/250ML 1/2NS 25,000 UNIT/250 ML IV.SOLN IVC SCH (00:33)
[2021-11-17] MEDS: *HR* HYDROcodone/Acet 5/325 mg TABLET PO PRN ×2 (01:54→08:06)
[2021-11-17 02:40] LABS: Hematocrit 35.2 % (35.3-44.9); Hemoglobin 11.5 g/dL (11.5-15.4)
[2021-11-17 05:28] VITALS: O2SAT 91
[2021-11-17] MEDS: Ondansetron ODT 4 MG TAB.RAPDIS SL PRN (07:54)
[2021-11-17] MEDS: Aspirin 81 MG TAB.CHEW PO SCH (07:55)
[2021-11-17] MEDS ORDERED: Apixaban 5 MG TABLET PO SCH (09:00)
[2021-11-17 11:24] VITALS: BP 104/62; PULSE 84; TEMP 97.9
[2021-11-17] MEDS ORDERED: Flu Vac QV 22-23 (6MOS UP)/PF 0.5 ML SYRINGE IM ONE (12:01)
== END 2021-11-17 13:49 | disposition home or self-care (01) | DRG 300 ==
LOC: EMEROOARM 14:32 → 3ANU 14:32 → SUATTDRO 20:17 → 3ANU 20:55
PROVIDERS: ADMIT Internal Medicine; ATTEND Family Medicine

== ENCOUNTER 2021-12-03 21:52 | Inpatient (IN) ==
[2021-12-04] MEDS ORDERED: Naloxone 0.4 MG/ML INJ IVP PRN (03:41)
[2021-12-04] MEDS ORDERED: Ondansetron 4 MG/2 ML VIAL IVP PRN (03:41)
[2021-12-04] MEDS ORDERED: Acetaminophen 325 MG TABLET PO PRN (03:41)
[2021-12-04] MEDS ORDERED: Heparin 25,000UNIT/250ML 1/2NS 25,000 UNIT/250 ML IV.SOLN IVC SCH (04:30)
[2021-12-04] MEDS ORDERED: *HR* Heparin 5,000 UNIT/ML VIAL IVP PRN ×2 (05:16)
[2021-12-04] MEDS ORDERED: *HR* Heparin 5,000 UNIT/ML VIAL IVP ONE (05:16)
[2021-12-04 05:20] LABS: Basophils # 0.2 K/mcL (0.0-0.2); Basophils % 1.2 %; Eosinophils % 0.1 %; Hematocrit 34.8 % (35.3-44.9); Immature Granulocytes % 5.6 % (0-4); Lymphocytes # 1.1 K/mcL (0.6-4.6); Lymphocytes % 8.4 %; Mean Corpuscular HGB Conc 31.6 g/dL (31.6-35.5); Mean Corpuscular Hemoglobin 31.2 pg (28.0-33.3); Mean Corpuscular Volume 98.6 fL (83.0-100.0); Mean Platelet Volume 9.5 fL (9.4-12.4); Monocytes # 1.2 K/mcL (0.0-1.3); Monocytes % 9.7 %; Neutrophils # 9.6 K/mcL (1.6-8.9); Nucleated Red Blood Cells 0.2 /100 WBC (0); Platelet Count 234 K/mcL (140-400); Red Blood Count 3.53 M/mcL (3.82-4.97); Red Cell Distribution Width 16.5 % (11.5-14.5); White Blood Count 12.8 K/mcL (4.3-11.1)
[2021-12-04 05:24] LABS: Activated Partial Thrombo Time 74.6 Seconds (26.0-36.0)
[2021-12-04 05:30] LABS: INR 1.4; Prothrombin Time 15.4 Seconds (9.4-12.1)
[2021-12-04 05:38] LABS: Albumin 3.5 g/dL (3.5-5.7); Albumin/Globulin Ratio 1.1 (1.1-2.2); Bilirubin,Direct 0.7 mg/dL (0.0-0.2); Bilirubin,Indirect 1.1 mg/dL (0.0-1.0); Bilirubin,Total 1.8 mg/dL (0.3-1.0); Globulin 3.1 g/dL (2.4-3.5); Total Protein 6.6 g/dL (6.4-8.9)
[2021-12-04 05:44] LABS: Calcium 8.9 mg/dL (8.6-10.3); Magnesium 2.4 mg/dL (1.6-2.6); Potassium 4.2 mEq/L (3.5-5.1); Troponin I 0.04 ng/mL (< 0.04)
[2021-12-04] MEDS: Heparin 25,000UNIT/250ML 1/2NS 25,000 UNIT/250 ML IV.SOLN IVC SCH (05:54)
[2021-12-04] MEDS ORDERED: Loratadine 10 MG TABLET PO PRN (06:16)
[2021-12-04] MEDS ORDERED: Ipratropium/Albuterol Neb 3 ML IH PRN (06:49)
[2021-12-04] MEDS: Aspirin Enteric Coated 81 MG Tablet PO SCH (10:51)
[2021-12-04] MEDS: 0.9 % Sodium Chloride 1,000 ML IVC SCH ×2 (10:52→22:06)
[2021-12-04] MEDS: Piperacillin/Tazobactam 3.375 GM in 0.9 % Sodium Chloride Mini Bag 100 ML IVPB SCH ×2 (15:29→22:03)
[2021-12-04 15:40] LABS: Bacteria,Urine Few per hpf (None-Few); Bilirubin,Urine Negative (Negative); Blood,Urine Large (Negative); Clarity,Urine Ex.Turbid (Clear); Color,Urine Light-Orange (Yellow); Glucose,Urine (UA) Normal (Normal); Ketones,Urine 10 mg/dL (Negative); Leukocyte Esterase,Urine Large (Negative); Mucus,Urine Few per lpf (None-Few); Nitrite,Urine Negative (Negative); Protein,Urine 200 mg/dL (Neg-Trace); RBC,Urine TNTC per hpf (0-3); Specific Gravity,Urine 1.018 (1.010-1.025); Urobilinogen,Urine Normal (Normal); WBC,Urine TNTC per hpf (0-3)
[2021-12-04] MEDS ORDERED: Warfarin perPT PO PRN ×2 (15:57→18:00)
[2021-12-04 16:09] LABS: Protein/Creatinine Ratio,Urine 3.94 mg/mg (0.00-0.20); Sodium, Urine 32.6 mEq/L
[2021-12-04] MEDS ORDERED: Gadolinium Contrast Agent (WT Based) IV PRN (17:32)
[2021-12-04] MEDS ORDERED: *HR* Warfarin 5 MG TABLET PO SCH (18:00)
[2021-12-04] MEDS ORDERED: Iopamidol - 370 500 ML MLS PO ONE (18:44)
[2021-12-04 21:33] LABS: Immature Reticulocyte % 25.4 % (11.0-38.0); Retculocyte # 0.11 M/mcL (0.05-0.10); Reticulocyte % 3.2 % (1.6-2.8)
[2021-12-04 21:48] LABS: % Iron Saturation 18 % (15-50); Iron 59 mcg/dL (50-170); Transferrin 234 mg/dL (203-362)
[2021-12-04 22:06] LABS: Ferritin 346 ng/mL (10-120)
[2021-12-05] MEDS: Piperacillin/Tazobactam 3.375 GM in 0.9 % Sodium Chloride Mini Bag 100 ML IVPB SCH ×3 (04:45→21:14)
[2021-12-05] MEDS ORDERED: *HR* LORazepam 2 MG/ML VIAL IVP ONE (06:43)
[2021-12-05] MEDS: Aspirin Enteric Coated 81 MG Tablet PO SCH ×2 (07:31→07:54)
[2021-12-05 09:03] LABS: Adenovirus Not Detected (Not Detect); Bordetella Pertussis Not Detected (Not Detect); Chlamydophila pneumoniae Not Detected (Not Detect); Coronavirus 229E Not Detected (Not Detect); Coronavirus HKU1 Not Detected (Not Detect); Coronavirus NL63 Not Detected (Not Detect); Coronavirus OC43 Not Detected (Not Detect); Human Metapneumovirus Not Detected (Not Detect); Human Rhinovirus/Enterovirus Not Detected (Not Detect); Influenza A Subtype 2009 H1 Not Detected (Not Detect); Influenza B Not Detected (Not Detect); Mycoplasma pneumoniae Not Detected (Not Detect); Parainfluenza Virus 1 Not Detected (Not Detect); Parainfluenza Virus 2 Not Detected (Not Detect); Parainfluenza Virus 3 Not Detected (Not Detect); Parainfluenza Virus 4 Not Detected (Not Detect); Respiratory Syncytial Virus Not Detected (Not Detect); SARS-CoV-2 Not Detected (Not Detect)
[2021-12-05] MEDS ORDERED: *HR* LORazepam 2 MG/ML VIAL IVP PRN ×2 (11:20→14:26)
[2021-12-05] MEDS: Heparin 25,000UNIT/250ML 1/2NS 25,000 UNIT/250 ML IV.SOLN IVC SCH (11:50)
[2021-12-05 12:11] LABS: Calcium 8.8 mg/dL (8.6-10.3); Magnesium 2.5 mg/dL (1.6-2.6); Potassium 4.4 mEq/L (3.5-5.1)
[2021-12-05] MEDS ORDERED: GADOBUTROL 30 MMOL/30 ML VIAL IVP ONE (12:13)
[2021-12-05 13:07] LABS: INR 2.6; Prothrombin Time 28.8 Seconds (9.4-12.1)
[2021-12-05] MEDS ORDERED: Morphine Sulfate 2 MG/ML SYRINGE IVP PRN (14:04)
[2021-12-05 14:13] LABS: Hematocrit 34.4 % (35.3-44.9); Hemoglobin 10.9 g/dL (11.5-15.4); Mean Corpuscular HGB Conc 31.7 g/dL (31.6-35.5); Mean Corpuscular Hemoglobin 31.2 pg (28.0-33.3); Mean Corpuscular Volume 98.6 fL (83.0-100.0); Mean Platelet Volume 9.8 fL (9.4-12.4); Nucleated Red Blood Cells 0.3 /100 WBC (0); Platelet Count 230 K/mcL (140-400); Red Blood Count 3.49 M/mcL (3.82-4.97); Red Cell Distribution Width 16.6 % (11.5-14.5); White Blood Count 12.5 K/mcL (4.3-11.1)
[2021-12-05] MEDS: Morphine Sulfate 2 MG/ML SYRINGE IVP PRN ×2 (16:34→18:39)
[2021-12-05 16:48] LABS: Lymphocytes # 0.5 K/mcL (0.6-4.6); Neutrophils # 10.8 K/mcL (1.6-8.9); Platelet Estimate Normal (Normal)
[2021-12-06 02:50] LABS: Hematocrit 34.9 % (35.3-44.9); Hemoglobin 10.8 g/dL (11.5-15.4); Mean Corpuscular HGB Conc 30.9 g/dL (31.6-35.5); Mean Corpuscular Hemoglobin 31.1 pg (28.0-33.3); Mean Corpuscular Volume 100.6 fL (83.0-100.0); Mean Platelet Volume 9.6 fL (9.4-12.4); Nucleated Red Blood Cells 0.7 /100 WBC (0); Platelet Count 242 K/mcL (140-400); Red Blood Count 3.47 M/mcL (3.82-4.97); White Blood Count 11.8 K/mcL (4.3-11.1)
[2021-12-06 03:04] LABS: Calcium 8.5 mg/dL (8.6-10.3); Magnesium 2.8 mg/dL (1.6-2.6); Potassium 5.1 mEq/L (3.5-5.1)
[2021-12-06 03:15] LABS: INR 4.1; Prothrombin Time 45.5 Seconds (9.4-12.1)
[2021-12-06 03:18] LABS: Lymphocytes # 0.9 K/mcL (0.6-4.6); Monocytes # 0.9 K/mcL (0.0-1.3); Neutrophils # 9.4 K/mcL (1.6-8.9); Platelet Estimate Normal (Normal); Reactive Lymphocytes Present (Not Present)
[2021-12-06] MEDS: Morphine Sulfate 2 MG/ML SYRINGE IVP PRN ×6 (04:38→22:13)
[2021-12-06] MEDS: Piperacillin/Tazobactam 3.375 GM in 0.9 % Sodium Chloride Mini Bag 100 ML IVPB SCH (04:39)
[2021-12-06] MEDS: Aspirin Enteric Coated 81 MG Tablet PO SCH (07:45)
[2021-12-06] MEDS ORDERED: OLANZapine 5 MG TAB.RAPDIS PO PRN (08:00)
[2021-12-06] MEDS ORDERED: Multivit/Ca/Min/Fe/FA 1 TAB TABLET PO SCH (09:00)
[2021-12-06] MEDS ORDERED: Acetaminophen IV 1,000 MG/100 ML BAG IVPB ONE (12:30)
[2021-12-06] MEDS ORDERED: Acetaminophen 650 MG RECTAL SUPP RC PRN (13:32)
[2021-12-06] MEDS ORDERED: Morphine Sulfate 2 MG/ML SYRINGE IVP PRN (13:33)
[2021-12-06] MEDS ORDERED: Glycopyrrolate 0.2 MG/ML VIAL IVP PRN (13:34)
[2021-12-06] MEDS ORDERED: Scopolamine Patch 1.5 MG PATCH.TD72 TD SCH (13:45)
[2021-12-06] MEDS ORDERED: *HR* LORazepam 2 MG/ML VIAL IVP PRN (14:13)
[2021-12-07] MEDS: Morphine Sulfate 2 MG/ML SYRINGE IVP PRN ×2 (03:51→09:02)
[2021-12-07 10:43] LABS: INR 6.8; Prothrombin Time 74.7 Seconds (9.4-12.1)
[2021-12-07] MEDS: *HR* LORazepam Oral Conc 2 MG/ML SL PRN ×2 (15:44→20:09)
[2021-12-07] MEDS: Morphine Sulfate Oral CONC 10 MG/0.5 ML ORAL.SYG SL PRN ×2 (15:45→20:09)
[2021-12-07 19:52] VITALS: BP 97/63; PULSE 173; TEMP 99.3; O2SAT 83
[2021-12-08] MEDS: *HR* LORazepam Oral Conc 2 MG/ML SL PRN (00:16)
[2021-12-08] MEDS: Morphine Sulfate Oral CONC 10 MG/0.5 ML ORAL.SYG SL PRN (00:16)
== END 2021-12-08 05:06 | disposition expired | DRG 175 ==
LOC: 3NENU → SUATTDRO 12-04 03:22 → 2ANU 12-04 03:50
PROVIDERS: ADMIT Internal Medicine; ATTEND Pharmacist